=== PATIENT | male | born 2000 | race Caucasian/White ===

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

== ENCOUNTER 2020-12-04 11:14 | Day surgery (SDC) | payer OTHER ==
[2020-12-03 08:37] VITALS: BMI 30.2
[~2020-12-04 11:14] MED LIST changes: -DEXAMETHASONE SOD PHOSPHATE 10 MG/ML 1 ML VIAL IV ONE; +DEXAMETHASONE SOD PHOSPHATE 4 MG/ML 1 ML VIAL IV ONE; -HYDROcodone/APAP 5-325MG 1 EACH TAB PO ONE; -LACTATED RINGERS 1,000 ML IV ONE; +LIDOCAINE 1% (10MG/ML) FOR IV START INTRADERMA PRN; -LIDOCAINE 1% 20 ML VIAL (10MG/ML) FOR IV START INTRADERMA PRN; -LIDOCAINE 1% INJ 10MG/ML (20 ML MDV) ONE; -MIDAZOLAM 2 MG/2 ML VIAL ONE; -PROPOFOL 10 MG/ML 20 ML VIAL IV ONE; -ROPIVACAINE 5 MG/ML 30 ML VIAL ONE; -ceFAZolin IN SWFI 2 GM/20 ML SYRINGE IVP ONE; -fentaNYL (PF) 50 MCG/ML 2 ML AMP ONE
[2020-12-04 11:44] VITALS: RESP 16
[2020-12-04] MEDS ORDERED: fentaNYL (PF) 50 MCG/ML 2 ML AMP IV ONE (12:27)
[2020-12-04] MEDS ORDERED: MIDAZOLAM 2 MG/2 ML VIAL IV ONE (12:27)
[2020-12-04] MEDS ORDERED: fentaNYL (PF) 50 MCG/ML 2 ML AMP ONE (13:00)
[2020-12-04] MEDS ORDERED: MIDAZOLAM 2 MG/2 ML VIAL ONE (13:00)
[2020-12-04] MEDS ORDERED: PROPOFOL 10 MG/ML 20 ML VIAL IV ONE (13:00)
[2020-12-04] MEDS ORDERED: PHENYLEPHRINE-0.9% NACL SYG 1,000 MCG/10 ML SYRINGE ONE (13:00)
--- NOTE | 2020-12-04 13:01 | P.ANPRN ---
Procedure Note - Anesthesia - Nerve Block Performed Left Adductor Canal Single Time Out Performed: Yes Date of Procedure: 12/04/20 Procedure Start Time: 12:20 Procedure Stop Time: 12:30 Location of Patient: PreOp Indication: Acute Post-Operative Pain, Dx/Pain Location (Left Ankle Pain), Requested by Surgeon Sedation Type: Sedate with meaningful contact maintained Preparation: Sterile Prep Position: Supine Catheter: None Needle Types: Pajunk Needle Gauge: 21 Ultrasound used to visualize needle placement: Yes Ultrasound used to observe medication spread: Yes Injectate: Other (see comment) (15ml 0.25% Ropivacaine) Blood Aspirated: No Pain Paresthesia on Injection Noted: No Resistance on Injection: Normal Image Stored and Saved: Yes Events: Uneventful and Well Tolerated
--- NOTE | 2020-12-04 13:02 | P.ANPRN ---
Procedure Note - Anesthesia - Nerve Block Performed Left Popliteal Single Time Out Performed: Yes Date of Procedure: 12/04/20 Procedure Start Time: 12:20 Procedure Stop Time: 12:30 Location of Patient: PreOp Indication: Acute Post-Operative Pain, Dx/Pain Location (Left ankle pain), Requested by Surgeon Sedation Type: Sedate with meaningful contact maintained Preparation: Sterile Prep Position: Supine Catheter: None Needle Types: Pajunk Needle Gauge: 21 Ultrasound used to visualize needle placement: Yes Ultrasound used to observe medication spread: Yes Injectate: Other (see comment) (10ml 0.5% Ropivacaine + 10ml 2% Lidocaine w/ 1:200,000 epi) Blood Aspirated: No Pain Paresthesia on Injection Noted: No Resistance on Injection: Normal Image Stored and Saved: Yes Events: Uneventful and Well Tolerated
[2020-12-04] MEDS ORDERED: LACTATED RINGERS 1,000 ML IV ONE (14:30)
--- NOTE | 2020-12-04 14:31 | XR ---
Fluoroscopy History: ORIF Left Ankle orif left ankle 20 sec fl time used
--- NOTE | 2020-12-04 14:52 | P.OP ---
Date of Procedure: 12/04/20 Preoperative Diagnosis: Closed left bimalleolar equivalent ankle fracture Postoperative Diagnosis: Same Procedure(s) Performed: 1. Open reduction internal fixation left lateral malleolus 2. Manual application of joint stress by physician for radiography, left ankle 3. Application of short-leg splint by physician, left ankle Anesthesia: regional, spinal Surgeon: Richy Diaz Health Policy Nurse #1: June García Estimated Blood Loss (ml): 50 IV fluids (ml): 1,200 Pathology: none sent Condition: stable Disposition: PACU Indications for Procedure: The patient is a very pleasant. His healthy 20-year-old male who sustained an isolated left ankle fracture while wrestling with his brother at a wedding. I saw him in the office last week and he was diagnosed with a bimalleolar equivalent ankle fracture with significant widening of the medial clear space. I discussed treatment options with the patient and his mom. I recommended open reduction internal fixation. We discussed potential risks and complications of surgery including but not limited to risks from anesthesia, delayed wound healing, superficial infection, deep infection, nonunion, malunion, symptomatic hardware, late instability, posttraumatic arthritis, chronic pain, chronic swelling, damage to local blood vessels or nerves, DVT, PE, and other medical complications. The patient and his family understand these risks and provided their verbal and written consent to go forward with surgery. Description of Procedure: The patient was identified in preop holding and the correct left leg was marked with my initials. I reviewed the consent form with the patient and his mom and all their questions were answered. His bulky Kong splint was taken down and there was wrinkling of the skin with no fracture blisters. The patient was then brought back to the operating room after receiving a block by anesthesia. He was positioned on the OR table where a spinal anesthetic was given. The tourniquet was applied to the proximal aspect of the left leg. All bony prominences well-padded. Prior to starting the procedure a timeout was performed identifying the correct patient, operative extremity, and procedure. At this point I performed a manual external rotation stress x-ray of the left ankle. There is widening of the medial clear space. I interpreted this as a grossly unstable ankle fracture requiring surgical fixation. A comparison x-ray of the right ankle was taken. With manual application of stress there is no widening of the medial clear space. A 2 talar dome overlap lateral was taken to use a comparison should syndesmotic fixation be required. Left leg was then prepped and draped in the standard sterile fashion. I began by outlining a longitudinal incision centered directly over the fibula. Skin incision was made with a scalpel. Dissection was carried down carefully through subcutaneous tissue with tenotomy scissors. The fascia over the peroneal muscles proximally and the periosteum or the fibula distally was sharply incised taking care not to inadvertently damage any branches of the superficial peroneal nerve. The periosteum was elevated and the fracture was exposed. Consolidating clot and early callus was removed from the fracture site. Reduction was performed with longitudinal traction and the fracture fragments were keyed in with a [id number] reduction clamp. The reduction was verified with fluoroscopy. A 2.7 mm lag screw was placed across the fracture. A 10 hole one third tubular plate was used as a lateral neutralization device. Fluoroscopy was brought in and the fibula appeared to be anatomically reduced and out to length. There is no widening of the medial clear space. A manual external rotation stress x-ray showed no widening of the medial clear space or incisura. A cotton test was performed with a pointed reduction clamp and there was no opening at the incisura. I interpreted this as a stable ankle not requiring syndesmotic or deltoid fixation. The wound laterally was then thoroughly irrigated with sterile saline and closed in layers. All instrument, sponge, and sharp counts were correct. A sterile dressing was applied followed by a short leg bulky Kong splint. The tourniquet was let down. The patient was then awoken from his anesthetic, transferred to a gurfranklin, and brought to recovery having tolerated procedure well. June García PA-C was required as a skilled assistant finance manager for patient positioning, surgical exposure, reduction of fracture, placement of hardware, closure of wound, and application of splint. Plan: The patient is going to discharge home as an outpatient. He to be nonweightbearing on his left leg. He'll be given pain medications and a stool softener. He'll be given aspirin for DVT prophylaxis. We'll plan on seeing him back in 2 weeks for x-rays out of the splint and a wound check.
[2020-12-04 16:01] VITALS: TEMP 98.4
[2020-12-04 17:24] VITALS: BP 110/69; PULSE 65
== END 2020-12-04 17:30 | disposition home or self-care (01) ==
LOC: OR 11:14
PROVIDERS: ATTEND Orthopaedic Surgery
DX: S82.842A Displaced bimalleolar fracture of left lower leg, initial encounter for closed fracture (principal); Y93.72 Activity, wrestling; S93.422A Sprain of deltoid ligament of left ankle, initial encounter; X50.1XXA Overexertion from prolonged static or awkward postures, initial encounter
CPT/HCPCS: 27792; 73600; C1713; J2250; J1100; J0690; J2405; J3010; J2370; J2704

== ENCOUNTER → 2022-02-06 | Outpatient (CLI) | payer OTHER ==
--- NOTE | 2022-02-06 16:47 | US ---
EXAMINATION TYPE: US kidneys/renal and bladder DATE OF EXAM: 02/06/2022 COMPARISON: NONE CLINICAL HISTORY: R31.0 GROSS HEMATURIA. Painful urination. Episode of gross hematuria 4 months ago. Microscopic hematuria currently EXAM MEASUREMENTS: Right Kidney: 11.9 x 4.0 x 4.6 cm Left Kidney: 11.5 x 5.1 x 4.9 cm Right Kidney: no evidence of hydronephrosis Left Kidney: no evidence of hydronephrosis Bladder: wnl Bilateral Jets seen: no which may be secondary to timing and patient's volume status. There is no evidence for hydronephrosis at this point in time. No nephrolithiasis is seen. No ami s are identified. The urinary bladder is anechoic. IMPRESSION: No evidence of obstructive uropathy.
== END | disposition home or self-care (01) ==
LOC: RADUSWWP 16:18
PROVIDERS: ATTEND Urology
DX: R31.0 Gross hematuria (principal)
CPT/HCPCS: 76770